=== PATIENT | male | born 1985 | race Caucasian/White ===

== ENCOUNTER 2020-09-28 07:51 | Inpatient (IN) | payer MEDICAID ==
[~2020-09-28 07:51] MED LIST: Acetaminophen 500 MG Tab PO ONE; Bupivacaine 0.5% 50 ML MDV ONE; Celecoxib 200 MG Cap PO ONE; Dexamethasone 4 MG/ML SDV ONE; Glycopyrrolate 0.2 MG/ML 5 ML MDV ONE; Lidocaine 1% with EPINEPHrine 1:100,000 50 ML MDV ONE; Meropenem 500 MG SDV ONE; Neostigmine Methylsulfate 1 MG/ML 5 ML Syringe ONE; Ondansetron 4 MG/2 ML SDV ONE; Propofol 200 MG/20 ML SDV ONE; Rocuronium 50 MG/5 ML Vial ONE; Scopolamine 1.5 MG Transdermal Patch TOP SCH; Succinylcholine 200 MG/10 ML MDV ONE; fentaNYL 250 MCG/5 ML SDV ONE
[2020-09-28] MEDS ORDERED: Dextrose 5%-Lactated Ringers 1,000 ML IV SCH ×2 (08:30→12:30)
[2020-09-28] MEDS ORDERED: cefOXitin 2 GM in Sodium Chloride 0.9% 50 ML IV ONE (09:00)
[2020-09-28] MEDS ORDERED: fentaNYL 250 MCG/5 ML SDV ONE (09:17)
[2020-09-28] MEDS ORDERED: MAGNESIUM SULFATE IV ONE (09:30)
[2020-09-28] MEDS ORDERED: MAGNESIUM SULFATE IV SCH (09:30)
[2020-09-28] MEDS ORDERED: Ketamine 50 MG in Sodium Chloride 0.9% 49.5 ML IV SCH (09:30)
[2020-09-28] MEDS ORDERED: SODIUM CHLORIDE 0.9% IV SCH (09:30)
[2020-09-28] MEDS ORDERED: Ketamine 500 MG/5 ML MDV IV SCH (09:30)
[2020-09-28] MEDS ORDERED: SODIUM CHLORIDE 0.9% IV ONE (09:30)
[2020-09-28] MEDS: cefOXitin 2 GM Vial ONE ×2 (10:20→10:52)
[2020-09-28] MEDS ORDERED: hydrOXYzine HCL 100 MG/2 ML SDV IM ONE (11:45)
[2020-09-28] MEDS ORDERED: Ondansetron 4 MG/2 ML SDV IVPUSH ONE (11:45)
[2020-09-28] MEDS ORDERED: fentaNYL 100 MCG/2 ML SDV IVPUSH ONE (11:51)
[2020-09-28] MEDS ORDERED: Ondansetron 4 MG/2 ML SDV IVPUSH PRN ×2 (12:27→13:00)
[2020-09-28] MEDS ORDERED: Cyclobenzaprine 10 MG Tab PO PRN (12:31)
[2020-09-28] MEDS ORDERED: Pseudoephedrine 30 MG Tab PO PRN (12:36)
[2020-09-28] MEDS ORDERED: Loratadine 10 MG Tab PO PRN (12:36)
[2020-09-28] MEDS: Lactated Ringers 1,000 ML IV SCH (12:45)
[2020-09-28] MEDS ORDERED: Calcium Gluconate 10% 1 GM/10 ML SDV IVPUSH PRN (13:00)
[2020-09-28] MEDS ORDERED: 50% Dextrose in Water 50 ML Syringe IVPUSH PRN (13:00)
[2020-09-28] MEDS ORDERED: HYDROmorphone 1 MG/ML Syringe IV PRN (13:00)
[2020-09-28] MEDS ORDERED: HYDROmorphone 0.5 MG/0.5 ML Syringe IVPUSH PRN (13:00)
[2020-09-28] MEDS ORDERED: Acetaminophen 500 MG Tab PO PRN (13:00)
[2020-09-28] MEDS ORDERED: Labetalol 20 MG/4 ML Syringe IVPUSH PRN (13:00)
[2020-09-28] MEDS ORDERED: Glucagon,Human Recombinant 1 MG Vial IM PRN (13:00)
[2020-09-28] MEDS ORDERED: diphenhydrAMINE 50 MG/ML SDV IVPUSH PRN (13:00)
[2020-09-28] MEDS ORDERED: hydrOXYzine HCL 100 MG/2 ML SDV IM PRN (13:00)
[2020-09-28] MEDS ORDERED: Metoclopramide 10 MG/2 ML SDV IVPUSH PRN (13:00)
[2020-09-28] MEDS ORDERED: Insulin Lispro 100 Unit/ML 3 ML KwikPen SUBCUT PRN (13:00)
[2020-09-28] MEDS ORDERED: oxyCODONE 5 MG Tab PO PRN (13:00)
[2020-09-28] MEDS ORDERED: MVI, Adult with Vitamin K 10 ML, Thiamine 200 MG, Zinc/Copper/Manganese/Selenium 1 ML i... IV SCH ×4 (16:00)
[2020-09-28] MEDS ORDERED: Pantoprazole 40 MG Vial IVPUSH SCH (16:00)
[2020-09-28] MEDS: cefOXitin 2 GM in Sodium Chloride 0.9% 50 ML IV SCH ×2 (16:11→22:07)
[2020-09-28] MEDS: Acetaminophen 500 MG Tab PO SCH (16:17)
[2020-09-28] MEDS: Heparin Sodium 5,000 Units/ML Vial SUBCUT SCH (17:32)
[2020-09-28] MEDS ORDERED: Tranexamic Acid 1,000 MG in Sodium Chloride 0.9% 50 ML IV ONE (17:39)
[2020-09-29] MEDS: Lactated Ringers 1,000 ML IV SCH (00:45)
[2020-09-29] MEDS: Acetaminophen 500 MG Tab PO SCH ×3 (00:47→16:14)
[2020-09-29] MEDS: Heparin Sodium 5,000 Units/ML Vial SUBCUT SCH ×3 (02:57→21:39)
[2020-09-29] MEDS ORDERED: Iopamidol 612 MG/ML 50 ML SDV PO STA (03:06)
[2020-09-29] MEDS: cefOXitin 2 GM in Sodium Chloride 0.9% 50 ML IV SCH ×4 (03:08→21:40)
[2020-09-29] MEDS ORDERED: Ondansetron 4 MG Tab.DIS PO PRN (07:29)
[2020-09-29] MEDS ORDERED: Dextrose 5%-Lactated Ringers 1,000 ML IV SCH (07:30)
[2020-09-29] MEDS: Celecoxib 200 MG Cap PO SCH ×2 (08:24→21:39)
[2020-09-29] MEDS: SCOPOLAMINE PATCH CHECK TOP SCH (08:38)
[2020-09-29] MEDS ORDERED: Lactated Ringers 1,000 ML IV SCH (08:45)
--- NOTE | 2020-09-29 09:01 | CR ---
[facility] HISTORY: Postbariatric surgery FINDINGS: Patient swallowed water-soluble contrast. Upright views of the abdomen show no evidence of extravasation or obstruction. There is a surgical drain in the left upper quadrant. IMPRESSION: Status post bariatric surgery No extravasation or obstruction seen
--- NOTE | 2020-09-29 10:45 | PN ---
DATE OF SERVICE: 09/29/2020 SUBJECTIVE: Christiano is postop day 1 following a duodenal switch. Upper GI was normal. Oral intake 850. Narayanan output 2825. LOLA drain put out 260 mL of a bright red drainage. He was given 1 dose of tranexamic acid to stop the bleeding. Hemoglobin this morning was 15. On admission, it was 15.4. He reports pain is controlled with the energy protocol. He has no questions or concerns. OBJECTIVE: GENERAL: Christiano Sneed is a pleasant 34-year-old male. He is alert and oriented. VITAL SIGNS: TPR is 96.9, 76, 18, blood pressure 116/68. HEENT: Negative. NECK: Supple. HEART: Regular rate and rhythm. LUNGS: Clear. ABDOMEN: Dressings dry and intact. LOLA drain is intact. Had drained 260 mL of a red drainage. EXTREMITIES: Without peripheral edema. ASSESSMENT: Diagnostic laparoscopy with: 1. Laparoscopic duodenal switch. 2. Liver biopsy. 3. Excision of nodule, surface of stomach. 4. Repair of diaphragmatic hernia. 5. Excision of mediastinal lipoma. POSTOPERATIVE DIAGNOSES: 1. Morbid obesity. 2. Hepatomegaly. 3. Nodule on surface of stomach. 4. Diaphragmatic hernia. 5. Mediastinal lipoma. Date of procedure 09/28/2020. PLAN: 1. Decrease IV to 100 mL/hr. 2. May shower. 3. Discontinue Narayanan catheter. 4. Step-2 gastric bypass diet without cereal. 5. Decrease IV D5 LR to 100 mL/hr. 6. Zofran ODT 4 mg sublingual every 4 hours p.r.n. nausea, vomiting. 7. Heparin 5000 units subcu every 12 hours and communication order 3 med cups per hour, 1 every 20 minutes. Order written to start incentive spirometer. The patient has not used it yet. Encouraged ambulation 6 times daily and use of incentive spirometer 10 times every hour while awake. 8. We will evaluate p.r.n. or in a.m. Albertina Jain PA-C /[id number]
[2020-09-29] MEDS ORDERED: MVI, Adult with Vitamin K 10 ML, Thiamine 200 MG, Zinc/Copper/Manganese/Selenium 1 ML i... IV SCH ×4 (16:00)
[2020-09-29] MEDS ORDERED: Pantoprazole 40 MG Delayed-Release Granules 1 Packet PO SCH (16:30)
[2020-09-30] MEDS: Acetaminophen 500 MG Tab PO SCH ×2 (00:53→08:11)
[2020-09-30] MEDS: cefOXitin 2 GM in Sodium Chloride 0.9% 50 ML IV SCH ×2 (04:05→10:11)
[2020-09-30] MEDS: Celecoxib 200 MG Cap PO SCH (08:31)
[2020-09-30] MEDS: Heparin Sodium 5,000 Units/ML Vial SUBCUT SCH (08:32)
[2020-09-30] MEDS ORDERED: Cyanocobalamin (Vitamin B12) 1,000 MCG/ML SDV IM ONE (09:00)
[2020-09-30] MEDS: SCOPOLAMINE PATCH CHECK TOP SCH (09:10)
[2020-09-30] MEDS ORDERED: Magnesium Hydroxide 400 MG/5 ML Susp 30 ML Cup PO ONE (11:00)
--- NOTE | 2020-10-02 12:15 | DISCH ---
FINAL DIAGNOSES: 1. Morbid obesity. 2. Marked hepatomegaly. 3. Nodule of uncertain nature on the anterior aspect of the lesser curvature of the stomach. 4. Paraesophageal diaphragmatic hernia. 5. Mediastinal lipoma. SECONDARY DIAGNOSES: 1. Intermittent gastroesophageal reflux disease with history of back and joint pain. 2. History of sleep apnea. 3. History of depression. 4. Type 2 diabetes mellitus. 5. History of hypercholesterolemia. OPERATIVE PROCEDURES: Done on 09/28/2020, diagnostic laparoscopy with: 1. Laparoscopic duodenal switch. 2. Shon-Cut needle liver biopsy. 3. Excision of nodule on the surface of stomach. 4. Repair of paraesophageal diaphragmatic hernia. 5. Excision of mediastinal lipoma. SUMMARY: This is a 34-year-old male presenting with longstanding morbid obesity and increasingly significant comorbidities. After preoperative evaluation and discussion, he wished to proceed with a laparoscopic duodenal switch. This was completed with both phases being undertaken on the day of admission along with the above-noted procedures. The patient had a small roughly 1 or 2 mm nodule on the anterior aspect of the stomach that might be a gastrointestinal stromal tumor. This was excised, but also was excised with further margin at the time of the sleeve gastrectomy phase of the duodenal switch. Postoperatively, the patient was tolerating a liquid diet well, also the metformin. Of note, his preoperative hemoglobin A1c was 6.8 with an average blood sugar above 148 giving him a diagnosis of type 2 diabetes mellitus. He has been off metformin. The last 2 blood sugars have been 95 to 96 while on the liquid diet, so at this point his diabetes has already gone into remission. Otherwise, he will be continuing his home medications other than the metformin. He will be instructed to hold his vitamins and other supplements until after the first appointment and followup will be with Albertina Jain at [facility] on 10/09/2020. /[id number]
--- NOTE | 2020-10-16 13:08 | OR ---
DATE OF PROCEDURE: 09/28/2020 SURGEON: Jarek Masters MD PREOPERATIVE DIAGNOSIS: Morbid obesity. POSTOPERATIVE DIAGNOSES: 1. Morbid obesity. 2. Marked hepatomegaly. 3. Nodule on surface of stomach. 4. Paraesophageal diaphragmatic hernia. 5. Mediastinal lipoma. OPERATIVE PROCEDURE: Diagnostic laparoscopy with: 1. Laparoscopic duodenal switch (21685). 2. Shon-Cut needle liver biopsy (40743). 3. Excision of nodule on surface of the stomach (493445). 4. Repair of paraesophageal diaphragmatic hernia (68407). 5. Excision of mediastinal lipoma (40178). ANESTHESIA: General. REAL ESTATE PHOTOGRAPHER: Albertina Jain PA-C INDICATIONS FOR PROCEDURE: This is a 34-year-old male presenting with longstanding morbid obesity with increasingly significant comorbidities. After preoperative evaluation and discussion, he wished to proceed with a duodenal switch. Potential risks of procedure including bleeding, infection, leaks from various GI tract closures, and possibility of cardiopulmonary, septic, or hemorrhagic complications leading to were all discussed, and the patient wishes to proceed. DETAILS OF PROCEDURE: The patient was taken to the operating room, and after general endotracheal anesthesia was induced, he was placed in a lithotomy position. Narayanan catheter was inserted, and the abdomen prepped and draped. A 20 cm inferior and 5 cm left of the xiphoid process, a transverse incision was made, and the peritoneal cavity entered under direct vision with an Optiview trocar, inflated to 15 mmHg pressure with CO2. Laparoscope was then reinserted. No underlying trocar insertion site injuries were seen. Bilateral transversus abdominis plane blocks were then placed, and 6 additional trocars were placed across the upper mid abdomen. General exploration revealed marked hepatomegaly with liver being grossly fatty infiltrated. Shon-Cut needle biopsies were obtained from left lobe of the liver. Minimal bleeding from the biopsy sites was controlled with electrocautery. At this point, the small bowel was identified at the ileocecal valve and traced 300 cm proximal to that point. This was then brought up toward duodenum to assure that adequate mobility of small bowel to complete the duodenal switch procedure, one stage was feasible, and this appeared to be the case. The bowel was sutured to the omentum at that level, so it would not have to be re-convoluted later in the case. At this point, the liver was retracted anteriorly. Three findings were identified. One was a small nodule on the lesser curvature of the mid gastric body. This was excised by means of a ALCIDES stapler. This would be consistent with either a leiomyoma or small gastrointestinal stromal tumor and was sent as a separate histologic evaluation. The patient was noted to have moderate-sized paraesophageal diaphragmatic hernia with resection of that area revealing a mediastinal lipoma. Cautery was used to resect it down the diaphragmatic hernia. After dissection free of the surrounding esophagus, it was repaired with 0 Ethibond sutures reinforced with PTFE pledgets. At this point, the omentum was divided away from the mid greater curvature and with Harmonic Scalpel this dissection continued proximally to include the highest and posterior short gastric vessels with colonization of the gastric fundus away from the left ruth of the diaphragm. The dissection then continued distally continuing to divide the greater omentum across the level of duodenum to a point roughly 4 cm distal to the pyloric sphincter. At this point, the sleeve gastrectomy portion of the procedure was concluded getting 6 cm proximal to the pylorus. The first two ALCIDES loads were black loads with care being taken to avoid overtightening at the incisura angularis. A 40-Romanian chest tube was then placed orally per Anesthesia and positioned along the lesser curvature of the stomach. The remainder of the sleeve gastrectomy phase of the procedure was accomplished with a combination of reinforced black and purple loads up to and through the area adjacent to the esophagogastric junction. The stomach specimen was then placed back off to the side and removed at the conclusion of the procedure. At this point, the duodenum was dissected again at around 4 cm distal to the pylorus. Once this was dissected posteriorly and slightly inferiorly, it was divided with reinforced ALCIDES purple load. One additional firing of the ALCIDES combs load removing some of the lesser curvature of omental attachments to the duodenum and pyloric sphincter area to allow more of a drop down of the divided duodenum proximally was then accomplished. The small bowel again 300 cm proximal to the ileocecal valve was brought up to the proximal divided duodenum from the superior and inferior aspects of that point of division. It was sutured with some stay sutures of 3-0 Vicryl stitch. A small enterotomy was then placed in the inferior aspect of the duodenum and adjacent jejunum, and the internal firing with Endo- ALCIDES combs load 30 mm in length was accomplished. The common opening was then elevated with some stay sutures of 3-0 Vicryl stitch and the common opening closed off with a purple load. The lateral staple line was also then reinforced with 3-0 Vicryl stitch, and the anastomosis reinforced then with fibrin sealant both anteriorly and posteriorly with some additional sutures in between the small bowel just proximal to the anastomosis to the antrum and adjacent omentum with 3-0 Vicryl were also then placed to facilitate a distal flow of the contents entering the small bowel out of the duodenal ileostomy in a distal direction. It was felt that the secondary anastomosis at this point would be high risk in terms of creating some additional untoward manipulation and tension at the original duodenal ileostomy, and we deferred on that anastomosis at this time so as to avoid potential complications related to that secondary anastomosis knowing that this could be done at a later time if necessary. The stomach was then retrieved from the left lateral trocar site. A single Rancho-Naidu drain was then placed through the left lateral trocar site and positioned up against the area of the esophagogastric junction and from there up into the splenic fossa. The trocars were then sequentially removed. The peritoneal cavity deflated. Incisions were closed with 4- 0 Vicryl skin stitch and drains affixed with 4-0 Vicryl stitch as well. The patient was taken to the recovery room in satisfactory condition. There were no evident complications. Physician virtual customer assistant, Albertina Jain PA-C, played an essential role in assisting in this case, helping to position the patient, retract structures as needed, as well as suturing and cutting sutures when indicated. Her presence improved patient safety and decreased operative time. Jarek Masters MD /[id number]
== END 2020-09-30 13:05 | disposition home or self-care (01) | DRG 621 ==
LOC: JP.SDSSCHI 07:51 → JP.SDS 07:52 → EDSTATUS 10:15 → JP.MS 12:30
PROVIDERS: ADMIT Surgery; ATTEND Surgery
PROC: 0D194ZB Bypass Duodenum to Ileum, Percutaneous Endoscopic Approach (ICD-10-PCS; principal; 2020-09-28)
PROC: 0FB24ZX Excision of Left Lobe Liver, Percutaneous Endoscopic Approach, Diagnostic (ICD-10-PCS; 2020-09-28)
PROC: 0DB64ZZ Excision of Stomach, Percutaneous Endoscopic Approach (ICD-10-PCS; 2020-09-28)
PROC: 0BQT4ZZ Repair Diaphragm, Percutaneous Endoscopic Approach (ICD-10-PCS; 2020-09-28)
PROC: 0JB63ZZ Excision of Chest Subcutaneous Tissue and Fascia, Percutaneous Approach (ICD-10-PCS; 2020-09-28)
DX: E66.01 Morbid (severe) obesity due to excess calories (principal); R16.0 Hepatomegaly, not elsewhere classified; K44.9 Diaphragmatic hernia without obstruction or gangrene; D17.4 Benign lipomatous neoplasm of intrathoracic organs; G47.30 Sleep apnea, unspecified; K21.9 Gastro-esophageal reflux disease without esophagitis; F32.9 Major depressive disorder, single episode, unspecified; E11.9 Type 2 diabetes mellitus without complications; E78.00 Pure hypercholesterolemia, unspecified; M54.9 Dorsalgia, unspecified; F41.1 Generalized anxiety disorder; Z98.890 Other specified postprocedural states; Z79.899 Other long term (current) drug therapy; Z68.42 Body mass index [BMI] 45.0-49.9, adult; K31.89 Other diseases of stomach and duodenum
CPT/HCPCS: 36415; 74240; 74240-26; 80053; 82962; 83735; 84100; 85025; 85027; 86850; 86900; 86901; 88304; 88305; 88307; 88313; 88341; 88342; 93005; 94762; A9270-GY; C9113; J0171; J0330; J0694; J1100; J1170; J1644; J2185; J2405; J2704; J2710; J2765; J2795; J3010; J3410; J3411; J3420; J3475; J3490; J7050; J7120; J7121; Q9967

== ENCOUNTER 2021-08-16 03:32 | Inpatient (IN) | payer MEDICAID ==
[2021-09-21] MEDS ORDERED: Meropenem 500 MG SDV ONE (06:56)
[2021-09-21] MEDS ORDERED: Neostigmine Methylsulfate 1 MG/ML 5 ML Syringe ONE (07:43)
[2021-09-21] MEDS ORDERED: Glycopyrrolate 0.2 MG/ML 5 ML MDV ONE (07:43)
[2021-09-21] MEDS ORDERED: Rocuronium 50 MG/5 ML Vial ONE ×2 (07:43→10:16)
[2021-09-21] MEDS ORDERED: Dexamethasone 4 MG/ML SDV ONE (07:43)
[2021-09-21] MEDS ORDERED: Propofol 200 MG/20 ML SDV ONE (07:43)
[2021-09-21] MEDS ORDERED: Succinylcholine 200 MG/10 ML MDV ONE (07:43)
[2021-09-21] MEDS ORDERED: fentaNYL 250 MCG/5 ML SDV ONE (07:43)
[2021-09-21] MEDS ORDERED: Ondansetron 4 MG/2 ML SDV ONE (07:43)
[2021-09-21] MEDS ORDERED: Acetaminophen 500 MG Tab PO ONE (07:45)
[2021-09-21] MEDS ORDERED: Celecoxib 200 MG Cap PO ONE (07:45)
[2021-09-21] MEDS ORDERED: Scopolamine 1.5 MG Transdermal Patch TOP SCH (07:45)
[2021-09-21] MEDS ORDERED: Dextrose 5%-Lactated Ringers 1,000 ML IV SCH ×2 (08:15→13:45)
[2021-09-21] MEDS ORDERED: Naloxone 0.4 MG/ML SDV IVPUSH PRN (09:02)
[2021-09-21] MEDS ORDERED: diphenhydrAMINE 50 MG/ML SDV IVPUSH PRN ×2 (09:02→16:00)
[2021-09-21] MEDS ORDERED: diphenhydrAMINE 25 MG Cap PO PRN (09:02)
[2021-09-21] MEDS ORDERED: Ondansetron 4 MG/2 ML SDV IVPUSH PRN ×2 (09:02→16:00)
[2021-09-21] MEDS: HYDROmorphone/Normal Saline 6 MG/30 ML PCA Vial IV PRN (09:11)
[2021-09-21] MEDS ORDERED: cefOXitin 2 GM in Sodium Chloride 0.9% 50 ML IV ONE (09:30)
[2021-09-21] MEDS ORDERED: Ketamine 500 MG/5 ML MDV IV SCH (09:45)
[2021-09-21] MEDS ORDERED: Ropivacaine 46 ML, dexAMETHasone 8 MG, EPINEPHrine 0.4 MG, Sodium Chloride 0.9% 31.6 ML NERVRT SCH ×4 (09:45)
[2021-09-21] MEDS ORDERED: Ketamine 24 MG in Sodium Chloride 0.9% 19.76 ML IV SCH (09:45)
[2021-09-21] MEDS ORDERED: Naloxone 0.4 MG/ML SDV IV PRN (10:00)
[2021-09-21] MEDS ORDERED: fentaNYL 100 MCG/2 ML SDV ONE ×3 (10:25→12:23)
[2021-09-21] MEDS ORDERED: Lactated Ringers 1,000 ML ONE (11:47)
[2021-09-21] MEDS ORDERED: Bupivacaine 0.5% 50 ML MDV INJECT ONE (12:06)
[2021-09-21] MEDS ORDERED: Lidocaine 1% with EPINEPHrine 1:100,000 50 ML MDV INJECT ONE (12:06)
[2021-09-21] MEDS ORDERED: hydrOXYzine HCL 100 MG/2 ML SDV IM ONE (12:50)
[2021-09-21] MEDS ORDERED: Cyclobenzaprine 10 MG Tab PO PRN (13:43)
[2021-09-21] MEDS ORDERED: Metoclopramide 10 MG/2 ML SDV IVPUSH PRN (16:00)
[2021-09-21] MEDS ORDERED: MVI, Adult with Vitamin K 10 ML, Thiamine 200 MG, Zinc/Copper/Manganese/Selenium 1 ML i... IV SCH ×4 (16:00)
[2021-09-21] MEDS ORDERED: hydrOXYzine HCL 100 MG/2 ML SDV IM PRN (16:00)
[2021-09-21] MEDS ORDERED: Acetaminophen 500 MG Tab PO PRN (16:00)
[2021-09-21] MEDS ORDERED: Labetalol 20 MG/4 ML Syringe IVPUSH PRN (16:00)
[2021-09-21] MEDS: cefOXitin 2 GM in Sodium Chloride 0.9% 50 ML IV SCH ×2 (16:16→21:58)
[2021-09-21] MEDS: Acetaminophen 500 MG Tab PO SCH ×2 (16:18→23:32)
[2021-09-21] MEDS: Pantoprazole 40 MG Vial IVPUSH SCH (16:18)
[2021-09-21] MEDS: Heparin Sodium 5,000 Units/ML Vial SUBCUT SCH (17:37)
[2021-09-22] MEDS ORDERED: Iopamidol 510 MG/ML 50 ML SDV PO ONE (00:36)
[2021-09-22] MEDS: cefOXitin 2 GM in Sodium Chloride 0.9% 50 ML IV SCH ×4 (04:05→22:26)
[2021-09-22] MEDS: Heparin Sodium 5,000 Units/ML Vial SUBCUT SCH ×2 (05:18→17:56)
[2021-09-22] MEDS ORDERED: Ondansetron 4 MG Tab.DIS PO PRN (07:12)
[2021-09-22] MEDS ORDERED: Dextrose 5%-Lactated Ringers 1,000 ML IV SCH (07:15)
[2021-09-22] MEDS: Acetaminophen 500 MG Tab PO SCH ×2 (07:17→16:08)
[2021-09-22] MEDS: Magnesium Sulfate/Water 2 GM/50 ML BAG IV SCH ×3 (08:36→20:24)
[2021-09-22] MEDS: SCOPOLAMINE PATCH CHECK TOP SCH (08:38)
[2021-09-22] MEDS: Celecoxib 200 MG Cap PO SCH ×2 (08:38→20:25)
[2021-09-22] MEDS: MVI, Adult with Vitamin K 10 ML, Thiamine 200 MG, Zinc/Copper/Manganese/Selenium 1 ML i... IV SCH ×8 (14:21→16:11)
[2021-09-22] MEDS: HYDROmorphone/Normal Saline 6 MG/30 ML PCA Vial IV PRN (14:42)
[2021-09-22] MEDS: Pantoprazole 40 MG Vial IVPUSH SCH (16:08)
[2021-09-23] MEDS: Acetaminophen 500 MG Tab PO SCH ×4 (02:07→23:24)
[2021-09-23] MEDS: Magnesium Sulfate/Water 2 GM/50 ML BAG IV SCH ×4 (02:08→19:34)
[2021-09-23] MEDS: Heparin Sodium 5,000 Units/ML Vial SUBCUT SCH ×2 (05:19→17:18)
[2021-09-23] MEDS ORDERED: oxyCODONE 5 MG Tab PO PRN (07:01)
[2021-09-23] MEDS: Celecoxib 200 MG Cap PO SCH ×2 (08:22→21:29)
[2021-09-23] MEDS ORDERED: Cyanocobalamin (Vitamin B12) 1,000 MCG/ML SDV IM ONE (09:00)
[2021-09-23] MEDS: Docusate Sodium 100 MG Cap PO SCH ×2 (09:48→21:30)
[2021-09-23] MEDS: Bisacodyl 5 MG Tab PO SCH ×2 (09:48→21:30)
[2021-09-23] MEDS: SCOPOLAMINE PATCH CHECK TOP SCH (09:49)
[2021-09-23] MEDS ORDERED: Pantoprazole 40 MG Delayed-Release Granules 1 Packet PO SCH (16:30)
[2021-09-24] MEDS: Magnesium Sulfate/Water 2 GM/50 ML BAG IV SCH (01:40)
[2021-09-24] MEDS: Heparin Sodium 5,000 Units/ML Vial SUBCUT SCH (05:54)
[2021-09-24] MEDS: Acetaminophen 500 MG Tab PO SCH (09:08)
[2021-09-24] MEDS: Bisacodyl 5 MG Tab PO SCH (09:09)
[2021-09-24] MEDS: Celecoxib 200 MG Cap PO SCH (09:09)
[2021-09-24] MEDS: Docusate Sodium 100 MG Cap PO SCH (09:09)
== END 2021-09-24 12:00 | disposition home or self-care (01) | DRG 326 ==
LOC: EDSTATUS 09-21 07:15 → JP.SDS 09-21 07:51 → JP.MS 09-21 12:30
PROVIDERS: ADMIT Surgery; ATTEND Surgery
PROC: 0FT40ZZ Resection of Gallbladder, Open Approach (ICD-10-PCS; principal; 2021-09-21)
PROC: 0DB60ZZ Excision of Stomach, Open Approach (ICD-10-PCS; 2021-09-21)
PROC: 0DB80ZZ Excision of Small Intestine, Open Approach (ICD-10-PCS; 2021-09-21)
PROC: 0FB20ZX Excision of Left Lobe Liver, Open Approach, Diagnostic (ICD-10-PCS; 2021-09-21)
PROC: 3E0M05Z Introduction of Adhesion Barrier into Peritoneal Cavity, Open Approach (ICD-10-PCS; 2021-09-21)
DX: K95.89 Other complications of other bariatric procedure (principal); K65.8 Other peritonitis; K55.011 Focal (segmental) acute (reversible) ischemia of small intestine; K80.10 Calculus of gallbladder with chronic cholecystitis without obstruction; Z68.41 Body mass index [BMI] 40.0-44.9, adult; K91.2 Postsurgical malabsorption, not elsewhere classified; K52.9 Noninfective gastroenteritis and colitis, unspecified; E66.01 Morbid (severe) obesity due to excess calories; F41.1 Generalized anxiety disorder; E53.8 Deficiency of other specified B group vitamins; E55.9 Vitamin D deficiency, unspecified; Z98.84 Bariatric surgery status; Z79.899 Other long term (current) drug therapy
CPT/HCPCS: 36415; 74240; 80053; 80076; 82947; 83735; 84100; 85025; 88304; 88307; A9270-GY; C9113; J0171; J0330; J0694; J1100; J1170; J1644; J2185; J2405; J2704; J2710; J2795; J3010; J3410; J3411; J3420; J3475; J3490; J7120; J7121; Q9966